=== PATIENT | female | born 1935 | race Caucasian/White ===

== ENCOUNTER 2019-08-12 04:52 | Emergency (ER) | payer MEDICARE ==
[~2019-08-12] VITALS: Ht 152.4 cm; Wt 68.2 kg
[~2019-08-12 04:52] MED LIST: ASPIRIN 81M81 MG/TA2; B-12100 MCG; CALCIUM1 CAP; CARDIZEM 225 MG/5 ML; CATAPRES-TTS 10.1 M1; DIOVAN 40MG40 MG; EPA/GLA1 SGL; FLEXERIL 1010 MG/TAB PO; HCTZ 25MG TAB25 MG; LANTUS100 U/ML; NORCO 325 MG-51 TAB PO; PRILOSEC10 MG; PROFERRIN ES12 MG; ROXICODONE 55 MG/TAB PO; RT ADVAIR 128 DISKUS; SYNTHROID 0.0.025 MG; TRADJENTA5 MG; VITAMIN D1000 IU; ZANTAC 7575 MG
[2019-08-12 04:53] VITALS: TEMP 99.2
[2019-08-12 05:44] LABS: BASO % 0.5 % (0.0-2.0); EOS # 0.1 (0.0-0.7); EOS % 1.8 % (0-4.0); GRAN # 3.7 (1.4-6.5); HEMOGLOBIN 11.3 g/dl (12.5-16.0); LYMPH # 1.2 (1.2-3.4); LYMPH % 21.8 % (20.0-51.0); MEAN CELL VOLUME 90 fl (80.0-100.0); MEAN CORPUSCULAR HEMOGLOBIN 29 pg (27.0-31.0); MEAN CORPUSCULAR HGB CONC 33 g/dl (33.0-37.0); MONO # 0.5 (0.1-0.6); MONO % 8.4 % (1.7-9.3); PLATELET COUNT 157 K/mm3 (130-400); RED BLOOD COUNT 3.85 M/mm3 (4.10-5.30); REDCELL DISTRIBUTION WIDTH-CV 14.4 % (11.5-14.5)
[2019-08-12 05:47] LABS: HEMATOCRIT 34.8 % (37.0-47.0)
[2019-08-12 05:58] LABS: ALANINE AMINOTRANSFERASE 17 U/L (9-52); ALBUMIN 4.3 gm/dL (3.5-5.0); ALKALINE PHOSPHATASE 79 U/L (50-136); ANION GAP 9 mmol/L (7-16); AST,SGOT 28 U/L (15-37); BILIRUBIN,TOTAL 0.4 mg/dL (0.0-1.0); BLOOD UREA NITROGEN 24 mg/dL (7-17); CALCIUM 9.7 mg/dL (8.4-10.2); CARBON DIOXIDE 26 mmol/L (22-30); CHLORIDE 109 mmol/L (98-107); CREATININE, serum 1.41 (0.52-1.25); GLUCOSE 80 mg/dL (74-106); POTASSIUM 4.1 mmol/L (3.4-5.0); SODIUM 143 mmol/L (137-145); TOTAL PROTEIN 7.2 gm/dL (6.4-8.2)
[2019-08-12 06:00] LABS: C-REACTIVE PROTEIN < 0.5 mg/dL (0.0-0.9)
[2019-08-12 07:34] LABS: COLLECTION METHOD CLEAN CATCH
[2019-08-12 07:44] LABS: PH 5 (5-8); SQUAMOUS EPITHELIAL 0-2 /hpf; URINE APPEARANCE Clear; URINE BACTERIA None Seen /hpf; URINE BILIRUBIN Negative (NEGATIVE); URINE BLOOD 1+ (NEGATIVE); URINE COLOR Straw; URINE GLUCOSE Negative (NEGATIVE); URINE KETONE Negative (NEGATIVE); URINE LEUKOCYTE ESTERASE Negative (NEGATIVE); URINE NITRATE Negative (NEGATIVE); URINE PROTEIN(semi-quant) Negative (NEGATIVE); URINE RBC 0-2 /hpf; URINE UROBILINOGEN Negative (NEGATIVE)
[2019-08-12 08:45] VITALS: BP 174/86; PULSE 82
== END 2019-08-12 10:25 | disposition home or self-care (01) ==
LOC: COL.ER 04:52
PROVIDERS: Emergency Medicine
DX: M25.552 Pain in left hip (principal); R10.31 Right lower quadrant pain; Z79.82 Long term (current) use of aspirin; Z79.4 Long term (current) use of insulin; Z79.51 Long term (current) use of inhaled steroids
CPT/HCPCS: J1170; J2405; J7040; Q9967

== ENCOUNTER → 2019-08-21 | Emergency (ER) | payer MEDICARE, OTHER ==
[~2019-08-21] VITALS: Ht 154.9 cm; Wt 70.5 kg
[~2019-08-21] MED LIST changes: +CEFTIN500 MG PO; +LANTUS100 U/ML SQ; +PRILOSEC10 MG PO
[2019-08-21 15:55] LABS: BASO % 0.5 % (0.0-2.0); EOS # 0.1 (0.0-0.7); GRAN # 3.9 (1.4-6.5); GRAN % 61.2 % (42.2-75.2); HEMOGLOBIN 11.7 g/dl (12.5-16.0); LYMPH # 1.8 (1.2-3.4); LYMPH % 27.6 % (20.0-51.0); MEAN CELL VOLUME 91 fl (80.0-100.0); MEAN CORPUSCULAR HEMOGLOBIN 29 pg (27.0-31.0); MEAN CORPUSCULAR HGB CONC 32 g/dl (33.0-37.0); MEAN PLATELET VOLUME 12.2 fl (7.4-10.4); MONO # 0.5 (0.1-0.6); MONO % 8.2 % (1.7-9.3); PLATELET COUNT 169 K/mm3 (130-400); REDCELL DISTRIBUTION WIDTH-CV 14.3 % (11.5-14.5)
[2019-08-21 16:01] LABS: HEMATOCRIT 36.2 % (37.0-47.0)
[2019-08-21 16:10] LABS: ALANINE AMINOTRANSFERASE 26 U/L (9-52); ALBUMIN 4.5 gm/dL (3.5-5.0); ALKALINE PHOSPHATASE 95 U/L (50-136); ANION GAP 12 mmol/L (7-16); AST,SGOT 31 U/L (15-37); BILIRUBIN,TOTAL 0.4 mg/dL (0.0-1.0); BLOOD UREA NITROGEN 33 mg/dL (7-17); CALCIUM 9.9 mg/dL (8.4-10.2); CARBON DIOXIDE 21 mmol/L (22-30); CHLORIDE 105 mmol/L (98-107); CREATININE, serum 1.84 (0.52-1.25); GLUCOSE 111 mg/dL (74-106); POTASSIUM 4.6 mmol/L (3.4-5.0); SODIUM 138 mmol/L (137-145); TOTAL PROTEIN 7.4 gm/dL (6.4-8.2)
[2019-08-21 16:12] LABS: C-REACTIVE PROTEIN < 0.5 mg/dL (0.0-0.9)
[2019-08-21 16:37] LABS: COLLECTION METHOD CLEAN CATCH
[2019-08-21 16:44] LABS: PH 5 (5-8); SQUAMOUS EPITHELIAL 0-2 /hpf; URINE APPEARANCE Clear; URINE BACTERIA Rare /hpf; URINE BILIRUBIN Negative (NEGATIVE); URINE BLOOD Negative (NEGATIVE); URINE COLOR Yellow; URINE GLUCOSE Negative (NEGATIVE); URINE KETONE Negative (NEGATIVE); URINE LEUKOCYTE ESTERASE 2+ (NEGATIVE); URINE NITRATE Negative (NEGATIVE); URINE PROTEIN(semi-quant) Negative (NEGATIVE); URINE RBC 0-2 /hpf; URINE UROBILINOGEN Negative (NEGATIVE)
--- NOTE | 2019-08-22 11:12 | NUR ---
copy worker met with patient and her daughters, Heaven. Durable power of crop research scientist for health care obtained and it lists [facility]. Patient and daughters are seeking [facility] as patient cannot safely consulting practice manager her care in her apartment. Worker secured that medicaid would be the payer source and arranged for Yanna, financial counselor, to complete medicaid application. Worker obtained choice form for [facility], [facility], [facility], and [facility]. Worker made referrals to above facilities and faxed clinical information. Worker collaborated with nurse and physician and a therapy consult will be ordered. We continue to have facilities screen and visit with patient and daughters. Plan is transfer to chosen facility this date.
[2019-08-22 13:45] VITALS: BP 178/79; PULSE 63; TEMP 98.3
--- NOTE | 2019-08-22 14:42 | NUR ---
The patient discharged this day, 08/22 to [facility]. BRYAN Alanis conducted Care Assessment and faxed to [facility]. The patient is to be tranferred at 1400, the team and family were in agreeance. FRAME STRAIGHTENER student faxed discharge orders. FRAME STRAIGHTENER student contacted other facilities where referral were sent and thanked them for considering the referral. There are no additional needs at this time.
== END ==
LOC: COL.ER 15:33
PROVIDERS: Family Medicine
DX: R41.0 Disorientation, unspecified (principal); N39.0 Urinary tract infection, site not specified; E11.9 Type 2 diabetes mellitus without complications; I10 Essential (primary) hypertension; Z79.82 Long term (current) use of aspirin
CPT/HCPCS: J0696; J7030